=== PATIENT | male | born 1970 | race Caucasian/White ===

== ENCOUNTER 2018-04-16 12:04 | Inpatient (IN) | payer MEDICAID ==
[~2018-04-16] VITALS: Ht 185.4 cm; Wt 81.1 kg
[2018-04-16 12:00] VITALS: BP 122/81
[2018-04-16 19:21] VITALS: BP 125/79
[2018-04-16] MEDS ORDERED: CEPHALEXIN 500 MG CAPSULE PO SCH (21:00)
[2018-04-16] MEDS ORDERED: NICOTINE GUM 2 MG BC PRN (21:00)
[2018-04-16] MEDS: QUETIAPINE 100MG TABLET PO SCH (21:06)
[2018-04-17 07:47] VITALS: BP 143/83
[2018-04-17 07:47] LABS: MICROSCOPIC NOT IND
[2018-04-17 07:51] LABS: CULTURE INDICATED? NO
[2018-04-17] MEDS ORDERED: SENNA/DOCUSATE TABLET PO SCH (09:00)
[2018-04-17] MEDS: LISINOPRIL 10 MG TABLET PO SCH (09:02)
[2018-04-17] MEDS: CEPHALEXIN 500 MG CAPSULE PO SCH ×2 (09:02→21:36)
[2018-04-17 09:45] LABS: BASOPHILS # (AUTO) 0.12 x10^3/uL (0-0.1); BASOPHILS % (AUTO) 2 % (0-1); EOSINOPHILS # (AUTO) 0.23 x10^3/uL (0-0.4); EOSINOPHILS % (AUTO) 3 % (1-7); LYMPHOCYTES # (AUTO) 2.32 x10^3/uL (1-3.4); LYMPHOCYTES % (AUTO) 32 % (22-44); MD NO; MEAN CORPUSCULAR HGB CONC 33.8 g/dL (33.2-36.2); MEAN CORPUSCULAR VOLUME 94.7 fL (81-97); MEAN PLATELET VOLUME 7.3 fL (7.4-10.4); MONOCYTES # (AUTO) 0.49 x10^3/uL (0.2-0.8); MONOCYTES % (AUTO) 7 % (2-9); NEUTROPHILS % (AUTO) 57 % (42-75); PLATELET COUNT 398 x10^3/uL (130-400); RED CELL DISTRIBUTION WIDTH 13.6 % (9.4-14.8)
[2018-04-17 09:50] LABS: ALANINE AMINOTRANSFERASE 42 U/L (12-78); ALBUMIN 3.2 g/dL (3.4-5.0); ANION GAP 6 mmol/L (5-15); CALCIUM 8.5 mg/dL (8.5-10.1); CHLORIDE 105 mmol/L (98-107); CREATININE 0.81 mg/dL (0.7-1.3)
[2018-04-17 10:00] LABS: ALKALINE PHOSPHATASE 85 U/L (45-117); BILIRUBIN,TOTAL 0.2 mg/dL (0.2-1.0); TOTAL PROTEIN 7.3 g/dL (6.4-8.2)
[2018-04-17 10:37] LABS: CHOL/HDL RATIO 3.2; LDL/HDL RATIO 1.7 (0.5-3.0)
[2018-04-17] MEDS: ACETAMINOPHEN 325 MG TABLET PO PRN (17:00)
[2018-04-17 19:17] VITALS: BP 151/89
[2018-04-17] MEDS ORDERED: TRAZODONE 50MG TABLET PO SCH (21:00)
[2018-04-17] MEDS: QUETIAPINE 100MG TABLET PO SCH (21:37)
[2018-04-18 07:45] VITALS: BP 130/81
[2018-04-18] MEDS: LISINOPRIL 10 MG TABLET PO SCH (09:11)
[2018-04-18] MEDS: CEPHALEXIN 500 MG CAPSULE PO SCH ×2 (09:12→21:39)
[2018-04-18] MEDS: ACETAMINOPHEN 325 MG TABLET PO PRN ×2 (09:14→15:57)
[2018-04-18 19:55] VITALS: BP 154/91
[2018-04-18] MEDS: ACAMPROSATE 333 MG TABLET.DR PO SCH (21:39)
[2018-04-18] MEDS: QUETIAPINE 100MG TABLET PO SCH (21:40)
[2018-04-18 22:21] VITALS: BP 121/65
[2018-04-19] MEDS: ACETAMINOPHEN 325 MG TABLET PO PRN ×2 (05:29→13:31)
[2018-04-19 08:00] VITALS: BP 132/79
[2018-04-19] MEDS: LISINOPRIL 10 MG TABLET PO SCH (08:49)
[2018-04-19] MEDS: CEPHALEXIN 500 MG CAPSULE PO SCH (08:50)
[2018-04-19] MEDS: ACAMPROSATE 333 MG TABLET.DR PO SCH (09:45)
[2018-04-19] MEDS ORDERED: NICO2GUM41 BC (15:14)
[2018-04-19] MEDS ORDERED: LISI-167 PO (15:14)
[2018-04-19] MEDS ORDERED: CEPH-376 PO (15:14)
[2018-04-19] MEDS ORDERED: QUET100T PO (15:14)
[2018-04-19] MEDS ORDERED: ACAM333T7 PO (15:14)
== END 2018-04-19 16:00 | disposition home or self-care (01) | DRG 885 ==
LOC: 3E 12:06
PROVIDERS: ADMIT Psychiatry & Neurology Psychosomatic Medicine; ATTEND Internal Medicine
DX: F33.2 Major depressive disorder, recurrent severe without psychotic features (principal); F11.20 Opioid dependence, uncomplicated; F15.20 Other stimulant dependence, uncomplicated; L03.115 Cellulitis of right lower limb; R45.851 Suicidal ideations; F10.20 Alcohol dependence, uncomplicated; F20.0 Paranoid schizophrenia; F17.210 Nicotine dependence, cigarettes, uncomplicated; I10 Essential (primary) hypertension; Z59.0 Homelessness; Z79.899 Other long term (current) drug therapy; Z91.5 Personal history of self-harm; Z82.5 Family history of asthma and other chronic lower respiratory diseases; Z82.49 Family history of ischemic heart disease and other diseases of the circulatory system
CPT/HCPCS: 36415; 80053; 80061; 81003; 83735; 84100; 84443; 85025; Q0177

== ENCOUNTER 2018-04-26 21:28 | Emergency (ER) | payer MEDICAID ==
[~2018-04-26] VITALS: Ht 185.4 cm; Wt 83.5 kg
[~2018-04-26 21:28] MED LIST: ACAM333T7 PO; CEPH-376 PO; LISI-167 PO; NICO2GUM41 BC; QUET100T PO
[2018-04-26 21:57] LABS: BASOPHILS # (AUTO) 0.04 x10^3/uL (0-0.1); BASOPHILS % (AUTO) 1 % (0-1); EOSINOPHILS # (AUTO) 0.25 x10^3/uL (0-0.4); EOSINOPHILS % (AUTO) 3 % (1-7); LYMPHOCYTES # (AUTO) 2.44 x10^3/uL (1-3.4); LYMPHOCYTES % (AUTO) 33 % (22-44); MD NO; MEAN CORPUSCULAR HEMOGLOBIN 32.4 pg (27.5-34.5); MEAN CORPUSCULAR HGB CONC 33.9 g/dL (33.2-36.2); MEAN CORPUSCULAR VOLUME 95.4 fL (81-97); MEAN PLATELET VOLUME 7.6 fL (7.4-10.4); MONOCYTES # (AUTO) 0.44 x10^3/uL (0.2-0.8); MONOCYTES % (AUTO) 6 % (2-9); NEUTROPHILS # (AUTO) 4.16 x10^3/uL (1.8-6.8); NEUTROPHILS % (AUTO) 57 % (42-75); PLATELET COUNT 266 x10^3/uL (130-400); RED BLOOD COUNT 3.87 x10^6/uL (4.38-5.82); RED CELL DISTRIBUTION WIDTH 13.6 % (9.4-14.8)
[2018-04-26 22:06] LABS: ALBUMIN 3.5 g/dL (3.4-5.0); ANION GAP 9 mmol/L (5-15); CALCIUM 8.4 mg/dL (8.5-10.1); CHLORIDE 107 mmol/L (98-107); CREATININE 0.68 mg/dL (0.7-1.3); SALICYLATE LEVEL 2.3 mg/dL (2.8-20.0)
[2018-04-26 22:14] LABS: ACETAMINOPHEN < 2 mcg/mL (10-30)
[2018-04-26 22:31] LABS: AMPHETAMINE SCREEN, URINE Positive (Negative); BARBITURATE SCREEN, URINE Negative (Negative); BENZODIAZEPINE SCREEN, URINE Negative (Negative); CANNABINOID SCREEN, URINE Positive (Negative); COCAINE SCREEN, URINE Negative (Negative); METHADONE SCREEN, URINE Negative (Negative); OPIATE SCREEN, URINE Positive (Negative)
[2018-04-27 02:18] VITALS: BP 134/75
== END 2018-04-27 02:25 | disposition home or self-care (01) ==
LOC: ED 22:39
DX: T43.625A Adverse effect of amphetamines, initial encounter (principal); F11.229 Opioid dependence with intoxication, unspecified; F10.20 Alcohol dependence, uncomplicated; F19.20 Other psychoactive substance dependence, uncomplicated; F32.9 Major depressive disorder, single episode, unspecified; I10 Essential (primary) hypertension; Z72.9 Problem related to lifestyle, unspecified; Z75.9 Unspecified problem related to medical facilities and other health care; Z63.8 Other specified problems related to primary support group; Y90.0 Blood alcohol level of less than 20 mg/100 ml; Y92.9 Unspecified place or not applicable
CPT/HCPCS: 36415; 80048; 80307; 80329; 82040; 85025; 99284; G0480

== ENCOUNTER 2018-05-01 13:26 | Inpatient (IN) | payer MEDICAID ==
[~2018-05-01] VITALS: Ht 185.4 cm; Wt 83.0 kg
[2018-05-01] MEDS ORDERED: POLYETHYLENE GLYCOL 17 GM PACKET PO PRN (16:30)
[2018-05-01] MEDS ORDERED: ACETAMINOPHEN 325 MG TABLET PO PRN (16:30)
[2018-05-01] MEDS ORDERED: BISACODYL 10 MG SUPP PR PRN (16:30)
[2018-05-01 16:46] VITALS: BP 126/79
[2018-05-01 16:54] VITALS: BP 126/79
[2018-05-01] MEDS ORDERED: PLEASE ENTER HEIGHT AND WEIGHT MC SCH (17:00)
[2018-05-01 18:18] LABS: BASOPHILS # (AUTO) 0.04 x10^3/uL (0-0.1); BASOPHILS % (AUTO) 1 % (0-1); EOSINOPHILS # (AUTO) 0.35 x10^3/uL (0-0.4); EOSINOPHILS % (AUTO) 5 % (1-7); LYMPHOCYTES # (AUTO) 2.42 x10^3/uL (1-3.4); LYMPHOCYTES % (AUTO) 37 % (22-44); MD NO; MEAN CORPUSCULAR HEMOGLOBIN 32.9 pg (27.5-34.5); MEAN CORPUSCULAR HGB CONC 34.2 g/dL (33.2-36.2); MEAN CORPUSCULAR VOLUME 96.3 fL (81-97); MEAN PLATELET VOLUME 7.5 fL (7.4-10.4); MONOCYTES # (AUTO) 0.38 x10^3/uL (0.2-0.8); MONOCYTES % (AUTO) 6 % (2-9); NEUTROPHILS # (AUTO) 3.43 x10^3/uL (1.8-6.8); NEUTROPHILS % (AUTO) 52 % (42-75); PLATELET COUNT 251 x10^3/uL (130-400); RED BLOOD COUNT 3.99 x10^6/uL (4.38-5.82)
[2018-05-01 18:27] LABS: ALANINE AMINOTRANSFERASE 30 U/L (12-78); ALBUMIN 3.2 g/dL (3.4-5.0); ANION GAP 6 mmol/L (5-15); CALCIUM 8.5 mg/dL (8.5-10.1); CHLORIDE 108 mmol/L (98-107); CREATININE 0.84 mg/dL (0.7-1.3)
[2018-05-01 18:29] LABS: ALKALINE PHOSPHATASE 87 U/L (45-117); BILIRUBIN,TOTAL 0.3 mg/dL (0.2-1.0); TOTAL PROTEIN 6.7 g/dL (6.4-8.2)
[2018-05-01 19:04] LABS: MICROSCOPIC NOT IND
[2018-05-01 19:15] LABS: AMPHETAMINE SCREEN, URINE Positive (Negative); BARBITURATE SCREEN, URINE Negative (Negative); BENZODIAZEPINE SCREEN, URINE Negative (Negative); CANNABINOID SCREEN, URINE Positive (Negative); COCAINE SCREEN, URINE Negative (Negative); METHADONE SCREEN, URINE Negative (Negative); OPIATE SCREEN, URINE Negative (Negative)
[2018-05-01 20:13] VITALS: BP 122/74
[2018-05-02 08:12] VITALS: BP 145/81
[2018-05-02 19:41] VITALS: BP 141/77
[2018-05-02] MEDS: QUETIAPINE 200 MG TABLET PO SCH (20:26)
[2018-05-02] MEDS: DOCUSATE 100 MG CAPSULE PO PRN (20:26)
[2018-05-03 07:38] VITALS: BP 109/75
[2018-05-03 08:32] VITALS: BP 156/83
[2018-05-03] MEDS: LISINOPRIL 10 MG TABLET PO SCH (09:06)
[2018-05-03] MEDS: hydrOXyzine 50MG TABLET PO PRN ×2 (13:06→20:46)
[2018-05-03 19:38] VITALS: BP 119/69
[2018-05-03] MEDS: QUETIAPINE 200 MG TABLET PO SCH (20:46)
[2018-05-03] MEDS: DOCUSATE 100 MG CAPSULE PO PRN (20:46)
[2018-05-04 07:34] VITALS: BP 123/76
[2018-05-04] MEDS: LISINOPRIL 10 MG TABLET PO SCH (08:26)
[2018-05-04] MEDS: hydrOXyzine 50MG TABLET PO PRN ×2 (08:27→14:42)
[2018-05-04 19:25] VITALS: BP 145/80
[2018-05-04] MEDS: QUETIAPINE 200 MG TABLET PO SCH (20:06)
[2018-05-04] MEDS: DOCUSATE 100 MG CAPSULE PO PRN (20:06)
[2018-05-05] MEDS: hydrOXyzine 50MG TABLET PO PRN (06:39)
[2018-05-05 07:51] VITALS: BP 133/84
[2018-05-05] MEDS: LISINOPRIL 10 MG TABLET PO SCH (09:35)
== END 2018-05-05 18:00 | disposition home or self-care (01) | DRG 885 ==
LOC: 3E 16:21
PROVIDERS: ADMIT Psychiatry & Neurology Psychosomatic Medicine; ATTEND Psychiatry & Neurology Psychosomatic Medicine
DX: F33.3 Major depressive disorder, recurrent, severe with psychotic symptoms (principal); R45.851 Suicidal ideations; I10 Essential (primary) hypertension; F15.10 Other stimulant abuse, uncomplicated; F12.10 Cannabis abuse, uncomplicated; F11.10 Opioid abuse, uncomplicated; F10.10 Alcohol abuse, uncomplicated; Y90.0 Blood alcohol level of less than 20 mg/100 ml; F17.210 Nicotine dependence, cigarettes, uncomplicated; Z59.0 Homelessness; Z82.49 Family history of ischemic heart disease and other diseases of the circulatory system; Z82.5 Family history of asthma and other chronic lower respiratory diseases; Z71.51 Drug abuse counseling and surveillance of drug abuser
CPT/HCPCS: 36415; 80053; 80307; 81003; 85025

== ENCOUNTER 2018-06-09 13:45 | Observation (INO) | payer MEDICAID ==
[~2018-06-09] VITALS: Ht 185.4 cm; Wt 86.5 kg
[2018-06-09] MEDS ORDERED: HALOPERIDOL 5 MG TABLET ONE (14:47)
[2018-06-09 14:58] LABS: AMPHETAMINE SCREEN, URINE Negative (Negative); BARBITURATE SCREEN, URINE Negative (Negative); BENZODIAZEPINE SCREEN, URINE Negative (Negative); CANNABINOID SCREEN, URINE Positive (Negative); COCAINE SCREEN, URINE Negative (Negative); METHADONE SCREEN, URINE Negative (Negative); OPIATE SCREEN, URINE Negative (Negative)
[2018-06-09] MEDS ORDERED: HALOPERIDOL 5 MG TABLET PO ONE (15:00)
[2018-06-09 15:04] LABS: ALANINE AMINOTRANSFERASE 30 U/L (12-78); ALBUMIN 3.4 g/dL (3.4-5.0); ANION GAP 5 mmol/L (5-15); CALCIUM 8.2 mg/dL (8.5-10.1); CHLORIDE 108 mmol/L (98-107); CREATININE 0.79 mg/dL (0.7-1.3)
[2018-06-09 15:11] LABS: ALKALINE PHOSPHATASE 84 U/L (45-117); BILIRUBIN,TOTAL 0.3 mg/dL (0.2-1.0); SALICYLATE LEVEL 2.6 mg/dL (2.8-20.0); TOTAL PROTEIN 6.8 g/dL (6.4-8.2)
[2018-06-09 15:12] LABS: ACETAMINOPHEN < 2 mcg/mL (10-30)
[2018-06-09 15:17] LABS: BASOPHILS # (AUTO) 0.04 x10^3/uL (0-0.1); BASOPHILS % (AUTO) 1 % (0-1); EOSINOPHILS # (AUTO) 0.18 x10^3/uL (0-0.4); EOSINOPHILS % (AUTO) 3 % (1-7); LYMPHOCYTES # (AUTO) 2.09 x10^3/uL (1-3.4); LYMPHOCYTES % (AUTO) 37 % (22-44); MD NO; MEAN CORPUSCULAR HEMOGLOBIN 32.5 pg (27.5-34.5); MEAN CORPUSCULAR HGB CONC 33.7 g/dL (33.2-36.2); MEAN CORPUSCULAR VOLUME 96.5 fL (81-97); MEAN PLATELET VOLUME 7.4 fL (7.4-10.4); MONOCYTES # (AUTO) 0.33 x10^3/uL (0.2-0.8); MONOCYTES % (AUTO) 6 % (2-9); NEUTROPHILS # (AUTO) 3.06 x10^3/uL (1.8-6.8); NEUTROPHILS % (AUTO) 54 % (42-75); PLATELET COUNT 312 x10^3/uL (130-400); RED BLOOD COUNT 4.14 x10^6/uL (4.38-5.82); RED CELL DISTRIBUTION WIDTH 14.6 % (9.4-14.8)
[2018-06-09] MEDS ORDERED: hydrALAzine 20 MG/ML, 1ML IVPush PRN (18:00)
[2018-06-09] MEDS ORDERED: ONDANSETRON ODT 4 MG PO PRN (18:00)
[2018-06-09] MEDS ORDERED: QUETIAPINE 100MG TABLET ONE (20:39)
[2018-06-09] MEDS ORDERED: FAMOTIDINE 20 MG TABLET ONE (20:39)
[2018-06-09] MEDS ORDERED: NICOTINE 14MG/24 HR PATCH.TD24 ONE (20:39)
[2018-06-09] MEDS ORDERED: NICOTINE 7 MG/24 HR PATCH.TD24 ONE (20:42)
[2018-06-09] MEDS: NICOTINE 7 MG/24 HR PATCH.TD24 TD SCH (20:46)
[2018-06-09] MEDS: QUETIAPINE 100MG TABLET PO SCH (20:46)
[2018-06-09] MEDS: FAMOTIDINE 20 MG TABLET PO SCH (20:46)
[2018-06-10] MEDS ORDERED: LISINOPRIL 10 MG TABLET ONE (09:27)
[2018-06-10] MEDS ORDERED: FAMOTIDINE 20 MG TABLET ONE (09:27)
[2018-06-10] MEDS: HALOPERIDOL 1 MG TABLET PO PRN (10:09)
[2018-06-10] MEDS: LISINOPRIL 10 MG TABLET PO SCH (10:09)
[2018-06-10] MEDS: FAMOTIDINE 20 MG TABLET PO SCH ×2 (10:09→21:00)
[2018-06-10 16:04] VITALS: BP 128/70
[2018-06-10] MEDS: NICOTINE 7 MG/24 HR PATCH.TD24 TD SCH (18:28)
[2018-06-10] MEDS: QUETIAPINE 100MG TABLET PO SCH (20:57)
[2018-06-10 21:03] VITALS: BP 138/75
[2018-06-11 07:45] VITALS: BP 133/80
[2018-06-11] MEDS: FAMOTIDINE 20 MG TABLET PO SCH ×2 (08:21→19:57)
[2018-06-11] MEDS: LISINOPRIL 10 MG TABLET PO SCH (08:21)
[2018-06-11] MEDS: HALOPERIDOL 1 MG TABLET PO PRN (14:06)
[2018-06-11] MEDS: NICOTINE 7 MG/24 HR PATCH.TD24 TD SCH (17:04)
[2018-06-11 19:49] VITALS: BP 130/82
[2018-06-11] MEDS: QUETIAPINE 100MG TABLET PO SCH (19:59)
[2018-06-12 07:35] VITALS: BP 133/77
[2018-06-12] MEDS: FAMOTIDINE 20 MG TABLET PO SCH ×2 (08:34→21:18)
[2018-06-12] MEDS: LISINOPRIL 10 MG TABLET PO SCH (08:35)
[2018-06-12] MEDS: HALOPERIDOL 1 MG TABLET PO PRN ×2 (10:50→13:15)
[2018-06-12] MEDS: NICOTINE 7 MG/24 HR PATCH.TD24 TD SCH (18:00)
[2018-06-12 19:35] VITALS: BP 149/89
[2018-06-12] MEDS: NICOTINE GUM 2 MG BC PRN (20:04)
[2018-06-12] MEDS: QUETIAPINE 100MG TABLET PO SCH (21:17)
[2018-06-13 07:59] VITALS: BP 137/88
[2018-06-13] MEDS: FAMOTIDINE 20 MG TABLET PO SCH ×2 (08:24→20:16)
[2018-06-13] MEDS: LISINOPRIL 10 MG TABLET PO SCH (08:25)
[2018-06-13] MEDS: HALOPERIDOL 1 MG TABLET PO PRN ×3 (10:25→18:35)
[2018-06-13 19:30] VITALS: BP 117/77
[2018-06-13] MEDS: QUETIAPINE 100MG TABLET PO SCH (20:16)
[2018-06-14 07:12] VITALS: BP 123/83
[2018-06-14] MEDS: FAMOTIDINE 20 MG TABLET PO SCH ×2 (08:52→21:29)
[2018-06-14] MEDS: LISINOPRIL 10 MG TABLET PO SCH (08:53)
[2018-06-14] MEDS: HALOPERIDOL 1 MG TABLET PO PRN (09:37)
[2018-06-14] MEDS ORDERED: MAGNESIUM CITRATE 300ML ORAL SOL PO ONE (10:00)
[2018-06-14] MEDS ORDERED: QUETIAPINE 200 MG TABLET ONE (12:15)
[2018-06-14] MEDS ORDERED: QUETIAPINE 100MG TABLET PO SCH ×2 (13:00→14:00)
[2018-06-14 19:23] VITALS: BP 117/72
[2018-06-14] MEDS: DOCUSATE 100 MG CAPSULE PO PRN (21:29)
[2018-06-14] MEDS: QUETIAPINE 100MG TABLET PO SCH (21:30)
[2018-06-15 07:40] VITALS: BP 118/78
[2018-06-15] MEDS: FAMOTIDINE 20 MG TABLET PO SCH ×2 (08:15→21:03)
[2018-06-15] MEDS: QUETIAPINE 100MG TABLET PO SCH ×3 (08:16→21:03)
[2018-06-15] MEDS: LISINOPRIL 10 MG TABLET PO SCH (08:16)
[2018-06-15 19:27] VITALS: BP 122/79
[2018-06-15] MEDS: DOCUSATE 100 MG CAPSULE PO PRN (21:03)
[2018-06-16] MEDS: HALOPERIDOL 1 MG TABLET PO PRN (05:34)
[2018-06-16 07:46] VITALS: BP 151/74
[2018-06-16] MEDS: QUETIAPINE 100MG TABLET PO SCH ×3 (08:30→20:51)
[2018-06-16] MEDS: ACETAMINOPHEN 325 MG TABLET PO PRN (08:31)
[2018-06-16] MEDS: FAMOTIDINE 20 MG TABLET PO SCH ×2 (08:31→20:51)
[2018-06-16] MEDS: LISINOPRIL 10 MG TABLET PO SCH (08:31)
[2018-06-16] MEDS: NICOTINE GUM 2 MG BC PRN (17:54)
[2018-06-16 19:52] VITALS: BP 124/78
[2018-06-17 07:48] VITALS: BP 133/69
[2018-06-17] MEDS: FAMOTIDINE 20 MG TABLET PO SCH ×2 (09:00→20:59)
[2018-06-17] MEDS: LISINOPRIL 10 MG TABLET PO SCH (09:01)
[2018-06-17] MEDS: QUETIAPINE 100MG TABLET PO SCH ×2 (09:01→20:58)
[2018-06-17] MEDS: NICOTINE GUM 2 MG BC PRN ×2 (12:59→18:42)
[2018-06-17] MEDS: HALOPERIDOL 1 MG TABLET PO PRN (15:22)
[2018-06-17 19:44] VITALS: BP 130/76
[2018-06-18 08:07] VITALS: BP 138/82
[2018-06-18] MEDS: LISINOPRIL 10 MG TABLET PO SCH (08:16)
[2018-06-18] MEDS: FAMOTIDINE 20 MG TABLET PO SCH ×2 (08:16→22:20)
[2018-06-18] MEDS: QUETIAPINE 100MG TABLET PO SCH ×2 (08:22→22:20)
[2018-06-18] MEDS: DOCUSATE 100 MG CAPSULE PO PRN (10:27)
[2018-06-18] MEDS: NICOTINE GUM 2 MG BC PRN ×2 (15:21→19:26)
[2018-06-18 19:32] VITALS: BP 127/75
[2018-06-18] MEDS: ACETAMINOPHEN 325 MG TABLET PO PRN (22:21)
[2018-06-19] MEDS: NICOTINE GUM 2 MG BC PRN (05:34)
[2018-06-19] MEDS: FAMOTIDINE 20 MG TABLET PO SCH (07:55)
[2018-06-19] MEDS: LISINOPRIL 10 MG TABLET PO SCH (07:55)
[2018-06-19] MEDS: QUETIAPINE 100MG TABLET PO SCH ×2 (07:55→08:54)
[2018-06-19 08:00] VITALS: BP 123/68
[2018-06-19] MEDS: DOCUSATE 100 MG CAPSULE PO PRN (08:28)
[2018-06-19] MEDS ORDERED: LISI-167 PO (14:32)
[2018-06-19] MEDS ORDERED: QUET100T PO (14:32)
[2018-06-19] MEDS ORDERED: FAMO20TA7 PO (14:32)
== END 2018-06-19 14:43 | disposition home or self-care (01) ==
LOC: ED 16:26 → EDIP 16:27 → 2N 06-10 15:44
PROVIDERS: ADMIT Internal Medicine; ATTEND Hospitalist
DX: R45.851 Suicidal ideations (principal); I10 Essential (primary) hypertension; F19.10 Other psychoactive substance abuse, uncomplicated; F22 Delusional disorders; F32.9 Major depressive disorder, single episode, unspecified; F41.9 Anxiety disorder, unspecified; Z87.891 Personal history of nicotine dependence
CPT/HCPCS: 36415; 80053; 80307; 80329; 85025; 99285; G0378; G0480